=== PATIENT | male | born 1935 | race Hispanic/Latino ===

== ENCOUNTER → 2018-06-15 | Outpatient (CLI) | payer MEDICARE | END | disposition home or self-care (01) | LOC: RAH 09:14 | PROVIDERS: ATTEND Internal Medicine Hematology & Oncology | DX: I82.493 Acute embolism and thrombosis of other specified deep vein of lower extremity, bilateral (principal); D64.9 Anemia, unspecified; E55.9 Vitamin D deficiency, unspecified | CPT/HCPCS: 93970 ==

== ENCOUNTER → 2018-07-20 | Outpatient (CLI) | payer MEDICARE | END | disposition home or self-care (01) | LOC: RAH 09:19 | PROVIDERS: ATTEND Internal Medicine Hematology & Oncology | DX: I82.431 Acute embolism and thrombosis of right popliteal vein (principal); R22.41 Localized swelling, mass and lump, right lower limb; D64.9 Anemia, unspecified; E55.9 Vitamin D deficiency, unspecified | CPT/HCPCS: 93971 ==

== ENCOUNTER → 2018-11-22 | Outpatient (CLI) | payer MEDICARE | END | disposition home or self-care (01) | LOC: RAH 11:31 | PROVIDERS: ATTEND Internal Medicine Hematology & Oncology | DX: I82.431 Acute embolism and thrombosis of right popliteal vein (principal) | CPT/HCPCS: 93971 ==